=== PATIENT | female | born 1975 | race African-American/Black ===

== ENCOUNTER 2025-07-02 00:14 | Emergency (ER) | payer OTHER ==
[~2025-07-02] VITALS: Ht 167.6 cm; Wt 91.0 kg
[2025-07-02 00:22] VITALS: BP 199/114; PULSE 89; RESP 18; TEMP 36.9; O2SAT 97; O2SAT 98
[2025-07-02] MEDS ORDERED: AZELASTINE HCL 137MCG/SPRAY NASAL PUMP BOTHNSTRLS SCH (00:45)
[2025-07-02] MEDS: HYDROXYZINE 25MG TABLET PO ONE (02:08)
== END 2025-07-02 02:47 | disposition home or self-care (01) ==
LOC: ER 00:25
DX: R06.00 Dyspnea, unspecified (principal); R06.4 Hyperventilation
CPT/HCPCS: 71045; 93005; 99283